=== PATIENT | male | born 1955 | race Caucasian/White ===

== ENCOUNTER 2016-08-10 20:15 | Emergency (ER) | payer MEDICARE ==
[2016-08-10 20:34] VITALS: BMI 29.7
[2016-08-10 20:42] VITALS: TEMP 97.9; O2SAT 98
--- NOTE | 2016-08-10 21:18 | ED PDOC ---
Arrival/HPI - General Chief Complaint: Medical Clearance Time Seen by Provider: 08/10/16 20:49 Historian: Patient, Spouse - History of Present Illness Narrative History of Present Illness (Text): 08/10/16 21:00 This 61 yo male with pmh htn, ESRD, presents to this ED c/o bleeding from peritoneal dialysis implant wound x 1 day. Patient denies abdominal pain, rectal bleeding. Denies other complains. Time/Duration: Other (1 day) Context: Home Past Medical History - Provider Review Nursing Documentation Reviewed: Yes - Cardiac Hx Hypertension: Yes - Pulmonary Hx Respiratory Disorders: No - Neurological Hx Neurological Disorder: No - HEENT Hx HEENT Disorder: No - Renal Hx Dialysis: Yes Type of Dialysis Access: rsc [email or web address] Date of Last Dialysis Treatment: 08/10/16 - Endocrine/Metabolic Hx Endocrine Disorders: No - Hematological/Oncological Hx Blood Disorders: No - Integumentary Hx Dermatological Disorder: No - Musculoskeletal/Rheumatological Hx Musculoskeletal Disorders: No - Gastrointestinal Hx Gastrointestinal Disorders: No - Genitourinary/Gynecological Hx Genitourinary Disorders: No - Psychiatric Hx Psychophysiologic Disorder: No Hx Substance Use: No - Anesthesia Hx Anesthesia: Yes Hx Anesthesia Reactions: No Hx Malignant Hyperthermia: No Family/Social History - Physician Review Nursing Documentation Reviewed: Yes Family/Social History: No Known Family HX Smoking Status: Never Smoked Hx Alcohol Use: No Hx Substance Use: No Allergies/Home Meds Allergies/Adverse Reactions: Allergies No Known Allergies Allergy (Verified 08/10/16 20:34) Review of Systems - Review of Systems Constitutional: Normal. absent: Fatigue, Weight Change, Fevers Eyes: Normal ENT: Normal Respiratory: Normal. absent: SOB, Cough, Sputum, Wheezing Cardiovascular: Normal. absent: Chest Pain, Palpitations Gastrointestinal: absent: Abdominal Pain, Nausea, Vomiting Genitourinary Male: Normal. absent: Dysuria, Frequency Musculoskeletal: Normal Skin: Normal Neurological: Normal Endocrine: Normal Hemo/Lymphatic: Normal Psychiatric: Normal Physical Exam Vital Signs Temp Pulse Resp BP Pulse Ox 08/10/16 22:18 80 18 133/72 98 08/10/16 20:40 97.9 F 73 14 131/75 98 Temperature: Afebrile Blood Pressure: Normal Pulse: Regular Respiratory Rate: Normal Appearance: Positive for: Well-Appearing, Non-Toxic, Comfortable Pain Distress: None Mental Status: Positive for: Alert and Oriented X 3 - Systems Exam Head: Present: Atraumatic, Normocephalic Pupils: Present: PERRL Extroacular Muscles: Present: EOMI Conjunctiva: Present: Normal Mouth: Present: Moist Mucous Membranes Neck: Present: Normal Range of Motion Respiratory/Chest: Present: Clear to Auscultation, Good Air Exchange. No: Respiratory Distress, Accessory Muscle Use Cardiovascular: Present: Regular Rate and Rhythm, Normal S1, S2. No: Murmurs Abdomen: Present: Normal Bowel Sounds, Other (Peritoneal dialysis tube does not have a cap inserted. Cap is laying next to tubing. Tubing has a serous sanguinous fluid. No actively bleeding.). No: Tenderness, Distention, Peritoneal Signs, Rebound, Guarding Back: Present: Normal Inspection Upper Extremity: Present: Normal Inspection. No: Cyanosis, Edema Lower Extremity: Present: Normal Inspection. No: Edema Neurological: Present: GCS=15, CN II-XII Intact, Speech Normal Skin: Present: Warm, Dry, Normal Color. No: Rashes Psychiatric: Present: Alert, Oriented x 3, Normal Insight, Normal Concentration Medical Decision Making ED Course and Treatment: 08/10/16 21:[address] Rondon surgeon regarding patient abdominal dialysis tube. He said to clean tubing cap with chlrohexidine, and to apply a good dressing to prevent abdominal skin pressure ulcer. 08/10/16 22:09 Re-evaluation. Patient feels better. Discussed results and plan with patient who expresses understanding. All questions answered and there is agreement with the plan to discharge home with instructions. Patient stable for discharge. Return if symptoms persist or worsen. Re-evaluation Time: 22:07 Reassessment Condition: Re-examined, Improved Disposition/Present on Arrival - Present on Arrival Any Indicators Present on Arrival: No History of DVT/PE: No History of Uncontrolled Diabetes: No Urinary Catheter: No History of Decub. Ulcer: No History Surgical Site Infection Following: None - Disposition Have Diagnosis and Disposition been Completed?: Yes Diagnosis: Encounter for surgical wound dressing change, Encounter for postoperative wound check Disposition: HOME/ ROUTINE Disposition Time: 22:10 Patient Plan: Discharge Condition: GOOD Discharge Instructions (ExitCare): Acute Wound Care (ED) Additional Instructions: Call private doctor for follow up visit in 1-2 days. Keep wound clean and dry , and have wound and tubing recheck on Friday.
[2016-08-10 22:18] VITALS: BP 133/72; PULSE 80; RESP 18
== END 2016-08-10 22:21 | disposition home or self-care (01) ==
LOC: ED 20:15
DX: Z51.89 Encounter for other specified aftercare (principal); Z48.00 Encounter for change or removal of nonsurgical wound dressing

== ENCOUNTER 2016-09-29 09:35 | Emergency (ER) | payer MEDICARE, OTHER ==
--- NOTE | 2016-09-29 09:52 | ED PDOC ---
Arrival/HPI - General Chief Complaint: High Blood Pressure Time Seen by Provider: 09/29/16 09:37 Historian: Patient - History of Present Illness Time/Duration: Prior to Arrival Symptom Course: Unchanged Severity Level: Mild Associated Symptoms (Text): 09/29/16 09:50 Patient reports that he got up this morning feeling fine. He took his blood pressure as he does every morning before he takes his blood pressure medication. It was elevated at 200/100. He then took his blood pressure medication and waited approximately one hour, but his blood pressure remained high. He then became very nervous and developed some dizziness. No headache. No chest pain palpitations or dyspnea. No abdominal pain nausea or vomiting. No weakness. No numbness. He's been on dialysis for approximately 2 months. No injury or trauma. No fever or chills. Patient reports that his blood pressure normally runs in the 160-170/100 range, except after dialysis when it is much lower. Past Medical History - Infectious Disease Hx of Infectious Diseases: None - Cardiac Hx Hypertension: Yes - Pulmonary Hx Respiratory Disorders: No - Neurological Hx Neurological Disorder: No - HEENT Hx HEENT Disorder: No - Renal Hx Renal Disorder: Yes Hx Dialysis: Yes Type of Dialysis Access: R chest Date of Last Dialysis Treatment: 09/27/16 Hx Renal Failure: Yes - Endocrine/Metabolic Hx Endocrine Disorders: No - Hematological/Oncological Hx Blood Disorders: No - Integumentary Hx Dermatological Disorder: No - Musculoskeletal/Rheumatological Hx Musculoskeletal Disorders: No - Gastrointestinal Hx Gastrointestinal Disorders: No - Genitourinary/Gynecological Hx Genitourinary Disorders: No - Psychiatric Hx Psychophysiologic Disorder: No Hx Substance Use: No - Anesthesia Hx Anesthesia: Yes Hx Anesthesia Reactions: No Hx Malignant Hyperthermia: No Family/Social History - Physician Review Nursing Documentation Reviewed: Yes (No numbness per my history) Family/Social History: Unknown Family HX Smoking Status: Never Smoked Hx Alcohol Use: No Hx Substance Use: No Allergies/Home Meds Allergies/Adverse Reactions: Allergies No Known Allergies Allergy (Verified 09/29/16 09:39) Review of Systems - Physician Review All systems were reviewed & negative as marked: Yes - Review of Systems Constitutional: Normal Respiratory: Normal Cardiovascular: Normal Gastrointestinal: Normal Neurological: Dizziness. absent: Headache, Focal Weakness, Gait Changes, Speech Changes, Facial Droop, Disequilibrium, Seizure Physical Exam Vital Signs Temp Pulse Pulse Resp BP Pulse Ox 09/29/16 10:46 74 18 144/97 H 98 09/29/16 09:55 72 18 171/95 H 98 09/29/16 09:44 72 09/29/16 09:39 97.8 F 75 18 204/90 H 98 Temperature: Afebrile Blood Pressure: Hypertensive Pulse: Regular Respiratory Rate: Normal Appearance: Positive for: Well-Appearing, Non-Toxic, Comfortable, Other (Anxious ) Pain Distress: None Mental Status: Positive for: Alert and Oriented X 3 - Systems Exam Head: Present: Atraumatic, Normocephalic Pupils: Present: PERRL Extroacular Muscles: Present: EOMI Conjunctiva: Present: Normal Mouth: Present: Moist Mucous Membranes Pharnyx: No: ERYTHEMA, EXUDATE, TONSILS ENLARGED Respiratory/Chest: Present: Clear to Auscultation, Good Air Exchange. No: Respiratory Distress, Accessory Muscle Use Cardiovascular: Present: Regular Rate and Rhythm, Normal S1, S2. No: Murmurs Abdomen: Present: Normal Bowel Sounds. No: Tenderness, Distention, Peritoneal Signs Upper Extremity: Present: Normal Inspection. No: Cyanosis, Edema Lower Extremity: Present: Normal Inspection. No: Edema Neurological: Present: GCS=15, CN II-XII Intact, Speech Normal, Motor Func Grossly Intact Skin: Present: Warm, Dry, Normal Color. No: Rashes Psychiatric: Present: Alert, Oriented x 3, Normal Insight, Normal Concentration , Anxious Medical Decision Making ED Course and Treatment: 09/29/16 09:52 EKG shows normal sinus rhythm rate approximately 70 with poor R waves and no acute ST or T-wave changes 09/29/16 10:52 Blood pressure is markedly improved. Patient is much less anxious. He was instructed to follow up with his PMD for possible change in dosage or change in frequency or change in medication. Disposition/Present on Arrival - Present on Arrival Any Indicators Present on Arrival: No History of DVT/PE: No History of Uncontrolled Diabetes: No Urinary Catheter: No History of Decub. Ulcer: No History Surgical Site Infection Following: None - Disposition Have Diagnosis and Disposition been Completed?: Yes Diagnosis: Hypertension Disposition: HOME/ ROUTINE Disposition Time: 10:52 Patient Plan: Discharge Condition: IMPROVED Discharge Instructions (ExitCare): Hypertension (ED) Additional Instructions: Follow-up with PMD. Follow-up in the ER as needed.
[2016-09-29 10:13] VITALS: RESP 18; TEMP 97.8; O2SAT 98; BMI 27.2
[2016-09-29 10:46] VITALS: BP 144/97; PULSE 74
--- NOTE | 2016-09-30 01:33 | CARD ---
APPROVED REPORT EKG Measurement Heart [id number] <Conclusion> Normal sinus rhythm Moderate voltage criteria for LVH, may be normal variant Inferior infarct, age undetermined Anterior infarct, age undetermined Abnormal ECG
== END 2016-09-29 11:06 | disposition home or self-care (01) ==
LOC: ED 09:35
DX: I10 Essential (primary) hypertension (principal)